=== PATIENT | female | born 2000 | race Caucasian/White ===

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

== ENCOUNTER 2022-01-01 22:42 | Emergency (ER) | payer SELFPAY ==
[~2022-01-01] VITALS: Ht 173 cm; Wt 110.0 kg
[~2022-01-01 22:42] MED LIST changes: +DICY20TA PO; -DICY20TA10 PO
[2022-01-01 22:48] VITALS: BP 142/91
--- NOTE | 2022-01-01 23:07 | ED Upper Extremity ---
General Chief Complaint: Upper Extremity Stated Complaint: RIGHT SHOULDER/ELBOW PAIN Nursing Triage Note: PT AMB TO ED BY [facility] WITH C/O R SHOULDER/ELBOW PAIN. PT REPORTS SHE WAS LIFTING A 300-400LB TRAILER HITCH AT APPROX 1999 THIS EVENING, FELT A POP, FOLLOWED BY PAIN IN R SHOULDER AND ELBOW. PT UNABLE TO FULLY STRAIGHTEN ELBOW OR RAISE ARM PAST SHOULDER LEVEL DUE TO PAIN. Source: patient Exam Limitations: no limitations History of Present Illness Date Seen by Provider: Jan 01, 2022 Time Seen by Provider: 22:49 Initial Comments This 21-year-old young lady presents to the emergency room with injury to the right upper extremity. She was lifting a trailer hitch into the bed of a truck and maneuvering it into position. Pain started after doing so. She denies any blunt trauma. She has had prior rotator cuff and labral tear repair to the right shoulder. She estimates the hitch weight at least 200 pounds. She assisted with lifting and then maneuvering the hitch into position. She seems to have the greatest amount of pain around the lateral epicondyle and with extension of the wrist against resistance. Shoulder pain is minimal. She took ibuprofen 800 mg around 1999. Allergies and Home Medications Allergies Coded Allergies: Penicillins (Verified Allergy, Unknown, 03/14/19) sulfamethoxazole (Verified Allergy, Unknown, 03/14/19) trimethoprim (Verified Allergy, Unknown, 03/14/19) Patient Home Medication List Home Medication List Reviewed: Yes Dicyclomine HCl (Dicyclomine HCl) 20 Mg Tablet, 20 MG PO TIDAC, (Reported) Entered as Reported by: PARESH MCKEON on 03/14/19 1252 Docusate Sodium (Colace) 100 Mg Capsule, 100 MG PO DAILY Prescribed by: LINSEY FERRER on 03/16/19 1004 Hydrocodone Bit/Acetaminophen (Lortab 5 Mg Tablet) 1 Tab Tab, 1-2 TAB PO Q6H PRN for PAIN-MODERATE Prescribed by: LINSEY FERRER on 03/16/19 1004 Review of Systems Constitutional: no symptoms reported EENTM: no symptoms reported Respiratory: no symptoms reported Cardiovascular: no symptoms reported Musculoskeletal: see HPI Skin: no symptoms reported Psychiatric/Neurological: No Symptoms Reported Past Vibcslt-Sigcjf-Rcnhmd Hx Patient Social History Tobacco Use?: No Use of E-Cig and/or Vaping dev: No Substance use?: No Alcohol Use?: No Pt feels they are or have been: No Immunizations Up To Date Influenza Vaccine Up-to-Date: No; Not Current First/Initial COVID19 Vaccinat: N/A Seasonal Allergies Seasonal Allergies: No Past Medical History Surgery/Hospitalization HX: ASTHMA R LABRUM AND ROTATOR CUFF REPAIR, CHOLECYSTECTOMY Surgeries: Yes (shoulder) Gallbladder, Orthopedic (Right rotator cuff and labral repair) Respiratory: Yes Asthma Cardiac: No Neurological: No : No Reproductive Disorders: No Genitourinary: No Gastrointestinal: Yes Gall Bladder Disease Musculoskeletal: No Endocrine: No HEENT: No Cancer: No Psychosocial: No Integumentary: No Blood Disorders: No Physical Exam Vital Signs Vital Signs - First Documented 01/01/22 22:48 Temp 36.2 Pulse 94 Resp 18 B/P (MAP) 142/91 (108) Pulse Ox 98 O2 Delivery Room Air Capillary Refill : Less Than 3 Seconds Height, Weight, BMI Height: 5'8.00" Weight: 242lbs. 0.0oz. [id number]; 36.00 BMI Method: General Appearance: WD/WN, no apparent distress HEENT: PERRL/EOMI, normal ENT inspection Neck: normal inspection Cardiovascular: regular rate, rhythm, no edema, no murmur, other (Normal right radial pulse) Respiratory: lungs clear, normal breath sounds, no respiratory distress Shoulder: normal inspection, normal ROM, bone tenderness (Minimal tenderness to palpation of the shoulder joint) Elbow/Forearm: normal inspection, normal ROM, Right, bone tenderness (Over the lateral epicondyle), pain (Pain with extension of the wrist, especially against resistance) Wrist: Yes normal inspection, Yes non-tender, Yes no evidence of injury, Yes normal ROM Hand: normal inspection, non-tender, no evidence of injury, normal ROM, Right Neurologic/Psychiatric: cloth picker II-XII nml as tested, no motor/sensory deficits, alert, normal mood/affect, oriented x 3 Skin: normal color, warm/dry Progress/Results/Core Measures Results/Orders My Orders Orders - KRISS GANNON MD Wrist-[place] (01/01/22 22:59) Vital Signs/I&O 01/01/22 22:48 Temp 36.2 Pulse 94 Resp 18 B/P (MAP) 142/91 (108) Pulse Ox 98 O2 Delivery Room Air Blood Pressure Mean: 108 Progress Progress Note : Progress Note History and exam seem consistent with acute lateral epicondylitis. Patient was fitted with a wrist brace. See discharge instructions for further discussion. She was offered x-rays but declined, especially since there was no blunt trauma. Departure Impression Primary Impression: Epicondylitis, lateral, right Disposition: 01 HOME, SELF-CARE Condition: Improved Departure-Patient Inst. Decision time for Depature: 23:03 Referrals: SARAH MERINO APRN (PCP/Family) Primary Care Physician Patient Instructions: Lateral Epicondylitis, Lateral Epicondylitis Exercises Add. Discharge Instructions: Based on the location of your injury and your exam, you seem to have a form of lateral epicondylitis. Ice in 20-minute intervals to help reduce pain and inflammation. You may take ibuprofen up to 600 mg every 6 hours and/or Tylenol (acetaminophen) up to 1000 mg every 6 hours as needed for pain. Use the wrist splint when active to avoid strain on your wrist and muscle attachments at the lateral epicondyle of your elbow. Avoid activities that increase pain in this area. Gradually increase level of activity as pain allows. If pain does not resolve within the next week, follow-up with your primary care provider or your orthopedist. Call with questions or concerns. Return to the ER if you have worsening symptoms. All discharge instructions reviewed with patient and/or family. Voiced understanding. Work/School Note: Work Release Form Date Seen in the Emergency Department: Jan 01, 2022 Return to Work: Jan 02, 2022 Other Restrictions Listed Below: Light duty with brace on right wrist. No agressive push/pull if painful. Restrictions: Continue light duty only until pain resolves or cleared by provider. KRISS GANNON MD Jan 01, 2022 23:07
== END 2022-01-01 23:15 | disposition home or self-care (01) ==
LOC: EDUNIT# 22:42 → ER 22:45
DX: M77.11 Lateral epicondylitis, right elbow (principal); J45.909 Unspecified asthma, uncomplicated; Z87.828 Personal history of other (healed) physical injury and trauma; X50.0XXA Overexertion from strenuous movement or load, initial encounter
CPT/HCPCS: 99282

== ENCOUNTER → 2022-02-17 | Outpatient (REF) ==
--- NOTE | 2022-02-17 10:41 | Diagnostic Imaging Report ---
Indication: Left shoulder pain AP, oblique and transscapular views of the left shoulder are obtained. FINDINGS: No acute fracture or dislocation is identified. No abnormal lytic or sclerotic focus is seen, and there is no radiopaque foreign body. IMPRESSION: No acute abnormality. Dictated by: Dictated on workstation # [id number]
--- NOTE | 2022-02-17 10:42 | Diagnostic Imaging Report ---
Indication: Neck pain with radiation to the left shoulder AP, oblique and odontoid views of cervical spine are obtained. There is narrowing present. There is loss of normal cervical lordosis. Vertebral body heights and disc spaces are maintained. Prevertebral soft tissues are unremarkable and there is no lytic or sclerotic lesion. IMPRESSION: Loss of cervical lordosis may be secondary to muscle spasm or positioning. Otherwise, there is no radiographic evidence of acute cervical spinal abnormality. Dictated by: Dictated on workstation # [id number]
== END ==
LOC: OCC 10:22
PROVIDERS: ATTEND Family Medicine
DX: M54.2 Cervicalgia (principal); M25.512 Pain in left shoulder
CPT/HCPCS: 72040; 73030

== ENCOUNTER → 2023-08-30 | Outpatient (CLI) | payer BC, MEDICAID ==
--- NOTE | 2023-08-30 18:11 | Diagnostic Imaging Report ---
INDICATION: patient, survey. TECHNIQUE: Multiple real-time grayscale images were obtained over the gravid uterus. COMPARISON: None during this . FINDINGS: A single live intrauterine fetus is seen measuring 19 weeks 5 days by composite measurements. The fetus is in cephalic presentation. Placenta is posterior with no evidence of previa. Amniotic fluid index is normal at 9.4 cm. Cervical length was 4.5 cm. Distance from the placental tip to the internal os was 6.2 cm. survey showed normal-appearing kidneys and bladder. Normal-appearing stomach was seen. Intracranial ventricles appear normal. Four-chamber heart view appeared normal. Three-vessel cord and cord insertion appeared normal. Views of the spine were unremarkable. Maternal adnexa could not be well seen. Biometrical measurements are as follows: Biparietal 4.62 cm, age 20 weeks 0 days. Head circumference 17.58 cm, age 20 weeks 1 days. Abdominal circumference 13.75 cm, age 19 weeks 2 days. Femur length 3.01 cm, age 19 weeks 3 days. Sonographic estimate age: 19 weeks 5 days. Sonographic estimated date of delivery: 01/19/2024. Estimated Weight: 287 gm (+/- 42 gm). LMP percentile: 11%. heart rate: 144 beats per minute. number: 1 of 1. IMPRESSION: Single live intrauterine fetus measuring 19 weeks 5 days by composite measurements with no detectable anatomic abnormalities. Dictated by: Dictated on workstation # [id number]
== END ==
LOC: RAD 14:26
PROVIDERS: ATTEND Obstetrics & Gynecology
DX: Z36.89 Encounter for other specified antenatal screening (principal); Z3A.19 19 weeks gestation of pregnancy
CPT/HCPCS: 76805

== ENCOUNTER 2023-10-27 13:01 | Outpatient (CLI) | payer BC, MEDICAID ==
[2023-10-27 13:38] VITALS: BP 117/70
--- NOTE | 2023-10-28 08:37 | Physician Query-Final Dx ---
FÁTIMA10/28/23 0837: Clinic Account Progress/Dx Physician Query: Please give diagnosis Please include # weeks gestation Date of Service Oct 27, 2023 at 13:01 FERNANDA BAEZ DO 10/28/23 1132: Clinic Account Progress/Dx DIAGNOSIS: Diagnosis 26 week decreased movement FÁTIMA,NovOct 28, 2023 08:37 FERNANDA BAEZ DO Oct 28, 2023 11:32
== END 2023-10-27 13:49 | disposition home or self-care (01) ==
LOC: WSo 13:01 → LDRP 13:01 → WSo 13:49
PROVIDERS: ATTEND Obstetrics & Gynecology
DX: O36.8120 Decreased fetal movements, second trimester, not applicable or unspecified (principal); Z3A.26 26 weeks gestation of pregnancy
CPT/HCPCS: 99213